=== PATIENT | male | born 1985 | race Caucasian/White ===

== ENCOUNTER 2017-10-24 08:36 | Emergency (ER) | payer OTHER ==
[~2017-10-24] VITALS: Ht 177.8 cm; Wt 87.8 kg
[2017-10-24 08:45] VITALS: BP 124/65
--- NOTE | 2017-10-24 08:50 | NUR ---
Pt taken to bed 4.
--- NOTE | 2017-10-24 08:57 | NUR ---
PATIENT PRESENTS TO ED WITH RUPTURED ABSCESS X1 DAY. PT STATES HX CHRONIC ABSCESS, RUPTURED LAST NIGHT. DENIES N/V/D; SKIN IS PINK/WARM/DRY; AAOX4 WITH EVEN AND STEADY GAIT; LUNGS CLEAR BL; HR EVEN AND REGULAR; PT DENIES ANY FEVER, CP, SOB, OR COUGH AT THIS TIME; PATIENT STATES PAIN OF 3/10 AT THIS TIME; VSS; PATIENT POSITIONED FOR COMFORT; HOB ELEVATED; BEDRAILS UP X2; BED DOWN. ER MD MADE AWARE OF PT STATUS.
[2017-10-24 09:05] VITALS: BP 124/65
--- NOTE | 2017-10-24 09:05 | NUR ---
Patient discharged with v/s stable. Written and verbal after care instructions given and explained. Patient verbalized understanding. Ambulatory with steady gait. All questions addressed prior to discharge. Advised to follow up with PMD.
== END 2017-10-24 09:05 | disposition home or self-care (01) ==
LOC: MED 08:36
DX: K60.3 Anal fistula (principal); Z71.6 Tobacco abuse counseling
CPT/HCPCS: 99281